=== PATIENT | female | born 1970 | race Caucasian/White ===

== ENCOUNTER 2021-04-02 14:23 | Emergency (ER) | payer MEDICAID ==
[~2021-04-02] VITALS: Ht 175.3 cm; Wt 64.2 kg
[2021-04-02] MEDS ORDERED: SODIUM CHLORIDE 0.9% 1,000ML IVBOLUS ONE ×2 (14:30→15:30)
--- NOTE | 2021-04-02 14:41 | NUR ---
BIB [facility] FROM . [facility] READ "HI". [employer] [facility]: PIV 20G RIGHT WRIST, 500ML NS, FSBS READ "HI" AFTER IVF. PT AMBULATED TO RESTROOM WITH STEADY GAIT TO PROVIDE URINE SAMPLE. UA COLLECTED AND SENT TO LAB. PT CONNECTED TO MONITORING. CALL LIGHT IN REACH. LABS HAVE BEEN DRAWN BY SURGICAL CLINICAL REVIEWER.
[2021-04-02 14:44] LABS: PH, VENOUS 7.356 pH (7.320-7.420)
[2021-04-02 14:45] LABS: O2 FLOW ROOM AIR L/min
[2021-04-02 14:54] LABS: BASOPHILS % (AUTO) 1 % (0-1); EOSINOPHILS % (AUTO) 2 % (1-7); LYMPHOCYTES % (AUTO) 30 % (22-44); MEAN CORPUSCULAR HEMOGLOBIN 29.6 pg (27.0-34.8); MEAN PLATELET VOLUME 7.9 fL (7.4-10.4); MONOCYTES % (AUTO) 12 % (2-9); NEUTROPHILS % (AUTO) 55 % (42-75); PLATELET COUNT 250 x10^3/uL (130-400); RED BLOOD COUNT 4.64 x10^6/uL (3.82-5.3); RED CELL DISTRIBUTION WIDTH 12.5 % (9.6-15.2)
[2021-04-02 14:55] LABS: ALANINE AMINOTRANSFERASE 27 U/L (12-78); ALBUMIN 3.3 g/dL (3.4-5.0); ANION GAP 5 mmol/L (5-15); CALCIUM 8.9 mg/dL (8.5-10.1); CHLORIDE 95 mmol/L (98-107)
--- NOTE | 2021-04-02 14:55 | NUR ---
PT WENT TO TO ESTABLISH PRIMARY CARE. PT RECENTLY DX WITH STREP THROAT AND HAS NOT FILLED ABX PRESCRIPTION. PT HAS NOT BEEN TAKING DM2 MEDS.
[2021-04-02 14:58] LABS: ALKALINE PHOSPHATASE 122 U/L (45-117); BILIRUBIN,TOTAL 0.3 mg/dL (0.2-1.0); CREATININE 0.91 mg/dL (0.55-1.02); TOTAL PROTEIN 7.2 g/dL (6.4-8.2)
--- NOTE | 2021-04-02 15:29 | NUR ---
2ND LITER IVF INFUSING. PT DENIES NEEDS AT THIS TIME.
[2021-04-02 15:31] LABS: ACETONE, SERUM Small (20mg/dL) (Negative)
[2021-04-02 15:49] LABS: MICROSCOPIC AUTO
--- NOTE | 2021-04-02 15:59 | NUR ---
ALL RESULTS ARE BACK AT THIS TIME. CHART UP FOR RECHECK.
--- NOTE | 2021-04-02 16:35 | NUR ---
FSBG 456 AFTER 2 LITER NS. ERMD NOTIFIED.
[2021-04-02] MEDS ORDERED: INSULIN SINGLE DOSE, ER ONE ×2 (16:50→16:52)
[2021-04-02] MEDS ORDERED: INSULIN REGULAR 100 UNITS/ML, 3ML VIAL IVPush ONE (17:00)
[2021-04-02 17:13] VITALS: BP 107/68
--- NOTE | 2021-04-02 17:16 | NUR ---
FSBG 370 ABOUT 15 MIN AFTER INSULIN 10 UNITS GIVEN. ERMD NOTIFIED.
== END 2021-04-02 19:40 | disposition home or self-care (01) ==
LOC: ED 17:06
DX: E11.65 Type 2 diabetes mellitus with hyperglycemia (principal); R94.31 Abnormal electrocardiogram [ECG] [EKG]
CPT/HCPCS: 36415; 80053; 81001; 82010; 82803; 82962; 83930; 85025; 93005; 96361; 96374; 99284; J1815; J7030